=== PATIENT | female | born 1970 | race African-American/Black ===

== ENCOUNTER 2016-08-14 11:51 | Emergency (ER) | payer SELFPAY ==
[~2016-08-14 11:51] MED LIST: AMOX500T2 PO; NAPR550 PO; Z.0.NO CURRENT MEDS
[2016-08-14 11:54] VITALS: BP 125/77; PULSE 103; RESP 15; TEMP 98.2; O2SAT 98
[2016-08-14] MEDS ORDERED: PERM5CRE11 TOPICAL (12:17)
--- NOTE | 2016-08-14 12:19 | PD ---
HPI Chief Complaint: Skin Problem Time Seen by Provider: 12:12 Travel History International Travel<30 days: No Contact w/Intl Traveler<30days: No Traveled to known affect area: No History of Present Illness HPI This patient complains of red bumps on her torso and would like to get treated for scabies. 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 No fever. Symptoms severity is mild PFSH Past Medical History Arthritis: No Asthma: No Autoimmune Disease: No Blood Disorders: No Anxiety: No Depression: No Heart Rhythm Problems: No Cancer: No Cardiac Catheterization: No Cardiovascular Problems: Yes High Cholesterol: No Chest Pain: No Congestive Heart Failure: No COPD: No Cerebrovascular Accident: No Diabetes: No Diminished Hearing: No Endocrine: No Gastrointestinal Disorders: Yes GERD: Yes Glaucoma: No Genitourinary: No Headaches: No Hepatitis: No Hiatal Hernia: No Hypertension: No Immune Disorder: No Kidney Stones: No Musculoskeletal: No Neurologic: No Psychiatric: No Reproductive: No Respiratory: No Myocardial Infarction: No Pancreatitis: Yes Radiation Therapy: No Renal Failure: No Seizures: No Sickle Cell Disease: No Sleep Apnea: No Thyroid Disease: No Ulcer: No PNEUMOCCOCAL Vaccine (Year): 2 ?: Not Para: 4 Dilation and Curettage (D&C): Yes Tubal Ligation: Yes Past Surgical History Abdominal Surgery: No AICD: No Arteriovenous Shunt: No Cardiac Surgery: No Cholecystectomy: Yes Coronary Artery Bypass Graft: No Ear Surgery: No Endocrine Surgery: No Eye Surgery: No Genitourinary Surgery: No Gynecologic Surgery: No Insulin Pump: No Joint Replacement: No Oral Surgery: No Pacemaker: No Thoracic Surgery: No Family History Family Myocardial Infarction: Yes (MOTHER WITH CT AGE 29) Social History Alcohol Use: No Tobacco Use: Yes (2 PPD) Substance Use: No Allergies-Medications (Allergen,Severity, Reaction): Coded Allergies: No Known Allergies (Verified , 07/27/11) Reported Meds & Prescriptions Reported Meds & Active Scripts Active No Active Prescriptions or Reported Medications Review of Systems General / Constitutional: No: Fever HENT: No: Headaches Cardiovascular: No: Chest Pain or Discomfort Respiratory: No: Cough Physical Exam Narrative GASTROINTESTINAL: Abdomen soft, non-tender, nondistended. Positive bowel sounds. No hepato-splenomegaly, or palpable masses. No guarding. Psych: Normal mood and affect. Normal insight and judgment. Skin: Normal turgor. There are a few erythematous macules and papules on the torso. No linear burrows. webspaces are clean Data Data Last Documented VS Vital Signs Date Time Temp Pulse Resp B/P Pulse Ox O2 Delivery O2 Flow Rate FiO2 08/14/16 11:54 98.2 103 15 125/77 98 MDM Medical Decision Making Medical Screen Exam Complete: Yes Emergency Medical Condition: Yes Medical Record Reviewed: Yes Differential Diagnosis Scabies, dermatitis, allergic reaction Narrative Course I have reviewed the patient's electronic medical record. Patient has some nonspecific erythematous lesions. Unclear what they represent. I did write her scabies treatment at her request Diagnosis Primary Impression: Rash Additional Instructions: The patient was advised to follow up with their physician and return if they worsen. Med/Other Pt SpecificInfo: Prescription(s) given Scripts Permethrin Topical (Elimite Topical)5% Cream1 Applic TOPICAL ONCE #1 TUBE Ref 0 Prov:Broderick Sosa MD 08/14/16 Disposition: DISCHARGE HOME Condition: Stable Broderick Sosa MD Aug 14, 2016 12:19
== END 2016-08-14 12:26 | disposition home or self-care (01) ==
LOC: NEPD 11:51
DX: R21 Rash and other nonspecific skin eruption (principal); K85.90 Acute pancreatitis without necrosis or infection, unspecified; K21.9 Gastro-esophageal reflux disease without esophagitis; F17.200 Nicotine dependence, unspecified, uncomplicated
CPT/HCPCS: 99283